=== PATIENT | male | born 1960 | race Caucasian/White ===

== ENCOUNTER 2017-03-02 23:26 | Inpatient (IN) | payer MEDICARE, MEDICAID ==
[~2017-03-02] VITALS: Ht 188 cm; Wt 122.9 kg
[~2017-03-02 23:26] MED LIST: BUDE160A3; CARI-277; NOR10T
[2017-03-03 02:59] LABS: Hematocrit 47.4 % (41.0-53.0); Hemoglobin 15.7 g/dL (13.5-17.5); Mean Corpuscular Hgb Conc. 33.1 g/dL (32.0-36.0); Mean Corpuscular Volume 90.5 fL (80.0-100.0); Mean Platelet Volume 8.8 fL (7.4-10.4); Platelet Count (auto) 334 10^3/uL (140-450); Red Cell Distribution Width 13.9 % (11.6-16.0); SUSPECT VIEW TRANSMISSION; White Blood Cell 21.2 10^3/uL (4.4-10.8)
[2017-03-03 03:00] LABS: Metamyelocytes % 0; Promyelocytes % 0; Reactive Lymphocytes 0
[2017-03-03 03:04] LABS: Albumin 4.1 g/dL (3.4-5.0); Amylase 19 U/L (25-115); Anion Gap 8 (5-15); Aspartate Aminotransferase 75 U/L (15-37); BUN/Creatinine Ratio 12.1; Blood Urea Nitrogen 30 mg/dL (7-18); Calcium 8.7 mg/dL (8.5-10.1); Carbon Dioxide 26 mmol/L (21-32); Chloride 109 mmol/L (98-107); GFR African American 35 mL/min; GFR Non-African American 29 mL/min; Glucose 148 mg/dL (74-106); Potassium 4.1 mmol/L (3.5-5.1); Sodium 143 mmol/L (136-145)
[2017-03-03 03:10] LABS: Alkaline Phosphatase 67 U/L (45-117); Bilirubin, Total 1.4 mg/dL (0.2-1.0); Total Protein 7.9 g/dL (6.4-8.2)
[2017-03-03 03:18] LABS: Hypersegmented Neutrophils Present; Myelocytes % 1; Platelet Estimate Adequate; RBC Morphology Normal
[2017-03-03] MEDS ORDERED: ONDANSETRON HCL 4 MG/2 ML VIAL ONE (04:35)
[2017-03-03] MEDS ORDERED: ONDANSETRON HCL 4 MG/2 ML VIAL IV ONE (04:45)
[2017-03-03] MEDS ORDERED: SODIUM CHLORIDE 0.9% 1,000 ML IV ONE ×2 (04:45→07:17)
[2017-03-03] MEDS ORDERED: SODIUM CHLORIDE 0.9% 250 ML IV ONE (07:25)
[2017-03-03] MEDS ORDERED: LEVOFLOXACIN 750MG 150 ML IV ONE (07:30)
[2017-03-03] MEDS ORDERED: metroNIDAZOLE 500MG/100ML 100 ML IV ONE (07:30)
[2017-03-03] MEDS ORDERED: NALBUPHINE HCL 10 MG/1ml INJECTION IV ONE (07:30)
[2017-03-03] MEDS ORDERED: BACLOFEN 10 MG TAB PO PRN (09:30)
[2017-03-03] MEDS ORDERED: DEXTROSE (50%) 50ML SYRG IV PRN (09:30)
[2017-03-03] MEDS ORDERED: MECLIZINE HCL 25 MG TAB PO PRN (09:30)
[2017-03-03] MEDS ORDERED: METHOCARBAMOL 500 MG TAB PO PRN (09:30)
[2017-03-03 09:45] LABS: Urine Bilirubin Negative (Negative); Urine Color Yellow (Yellow); Urine Glucose Normal (Normal); Urine RBC 1 /hpf (0 - 3); Urine Sperm PRESENT /hpf (None Seen); Urine Urobilinogen Normal (Negative)
[2017-03-03] MEDS ORDERED: DOCUSATE SOD 100 MG CAP PO PRN (09:45)
[2017-03-03] MEDS ORDERED: NITROGLYCERIN 0.4 MG SL TAB SL PRN (09:45)
[2017-03-03] MEDS ORDERED: ACETAMINOPHEN 325 MG TAB PO PRN (09:45)
[2017-03-03] MEDS ORDERED: MORPHINE SULF INJ 2 MG/ML SYRINGE 1ML IV PRN (09:45)
[2017-03-03] MEDS ORDERED: TEMAZEPAM 15 MG CAP PO PRN (09:45)
[2017-03-03 09:46] LABS: Urine Blood 1+ /uL (Negative); Urine Ketone 1+ (Negative); Urine Nitrite POSITIVE (Negative)
[2017-03-03 09:49] VITALS: BP 149/108
[2017-03-03] MEDS: BUDESONIDE (INHALATION) 0.5 MG/2 ML NEB NEB SCH ×2 (10:23→19:08)
[2017-03-03] MEDS ORDERED: VENL75TA PO (10:29)
[2017-03-03] MEDS ORDERED: BENZ100C97 PO (10:29)
[2017-03-03] MEDS ORDERED: FENO145T20 PO (10:29)
[2017-03-03] MEDS ORDERED: MECL1TAB42 PO (10:29)
[2017-03-03] MEDS ORDERED: METH750T3 PO (10:29)
[2017-03-03] MEDS ORDERED: GABA-521 PO (10:29)
[2017-03-03] MEDS ORDERED: BACL20TA PO (10:29)
[2017-03-03] MEDS ORDERED: PANT40T PO (10:29)
[2017-03-03] MEDS: VENLAFAXINE HCL 37.5MG TABLET PO SCH ×2 (10:48→21:53)
[2017-03-03] MEDS: FAMOTIDINE 20 MG TAB PO SCH ×2 (10:48→21:34)
[2017-03-03] MEDS: PANTOPRAZOLE 40 MG TAB PO SCH (10:48)
[2017-03-03] MEDS: MULTIPLE VITAMIN TAB PO SCH (10:48)
[2017-03-03] MEDS: MORPHINE SULF INJ 2 MG/ML SYRINGE 1ML IV PRN ×3 (10:49→20:26)
[2017-03-03] MEDS: ONDANSETRON HCL 4 MG/2 ML VIAL IV PRN ×2 (10:49→16:20)
[2017-03-03] MEDS: HYDROcodone-ACET 5/325MG TAB PO PRN ×3 (11:32→23:14)
[2017-03-03] MEDS: InsuLIN REG 1unit/0.01ml Soln (100units/ml) SC SCH ×3 (11:57→21:34)
[2017-03-03] MEDS: ACCU-CHEK COMFORT CURVE STRIP VI SCH ×3 (11:57→21:34)
[2017-03-03] MEDS: ALBUTEROL SULF 2.5 MG/0.5ML(0.5%) NEB SOLN NEB SCH ×2 (12:00→19:08)
[2017-03-03] MEDS: SODIUM CHLORIDE 0.9% 1,000 ML IV SCH ×2 (12:00→17:30)
[2017-03-03] MEDS ORDERED: TRAZ50TA2 PO (12:08)
[2017-03-03] MEDS ORDERED: PERCOT PO (12:08)
[2017-03-03] MEDS ORDERED: TAM04C PO (12:08)
[2017-03-03 13:31] LABS: Lactic Acid w/Reflex 2.9 mmol/L (0.4-2.0)
[2017-03-03 13:34] LABS: REFLEX LACTIC ACID YES OR NO NO
[2017-03-03] MEDS: GABAPENTIN 300 MG CAP PO SCH ×2 (13:37→21:34)
[2017-03-03 13:58] LABS: INR 1.16 (0.9-1.15); Prothrombin Time 12.5 sec (9.37-12.3)
[2017-03-03] MEDS: metroNIDAZOLE 500MG/100ML 100 ML IV SCH (16:19)
[2017-03-03 17:38] VITALS: BP 144/78
[2017-03-03] MEDS: traZODone HCL 50 MG TAB PO SCH (21:52)
[2017-03-03 22:11] VITALS: BP 125/76
[2017-03-04] MEDS: metroNIDAZOLE 500MG/100ML 100 ML IV SCH ×3 (00:28→16:57)
[2017-03-04] MEDS: MORPHINE SULF INJ 2 MG/ML SYRINGE 1ML IV PRN ×6 (00:54→21:29)
[2017-03-04] MEDS: SODIUM CHLORIDE 0.9% 1,000 ML IV SCH ×3 (02:15→18:14)
[2017-03-04] MEDS: InsuLIN REG 1unit/0.01ml Soln (100units/ml) SC SCH ×4 (04:34→21:30)
[2017-03-04] MEDS: ACCU-CHEK COMFORT CURVE STRIP VI SCH ×4 (04:38→21:30)
[2017-03-04 05:00] VITALS: BP 133/73
[2017-03-04] MEDS: GABAPENTIN 300 MG CAP PO SCH ×3 (05:12→21:29)
[2017-03-04] MEDS: ALBUTEROL SULF 2.5 MG/0.5ML(0.5%) NEB SOLN NEB SCH ×3 (06:00→19:53)
[2017-03-04 06:41] LABS: Basophils # (auto) 0 uL; Basophils % (auto) 0.2 % (0.0-2.0); Eosinophils # (auto) 0 uL; Eosinophils % (auto) 0.2 % (0.0-7.0); Hematocrit 39.2 % (41.0-53.0); Hemoglobin 12.9 g/dL (13.5-17.5); Lymphocytes # (auto) 1.5 uL; Lymphocytes % (auto) 11.1 % (10.0-50.0); Mean Corpuscular Hgb Conc. 32.8 g/dL (32.0-36.0); Mean Corpuscular Volume 91.3 fL (80.0-100.0); Mean Platelet Volume 8.8 fL (7.4-10.4); Monocytes # (auto) 1.1 uL; Monocytes % (auto) 7.8 % (0.0-12.0); Neutrophils % (auto) 80.7 % (37.0-80.0); Platelet Count (auto) 206 10^3/uL (140-450); Red Cell Distribution Width 14.2 % (11.6-16.0); White Blood Cell 13.7 10^3/uL (4.4-10.8)
[2017-03-04 06:58] LABS: Potassium 3.7 mmol/L (3.5-5.1)
[2017-03-04 07:00] LABS: Albumin 2.8 g/dL (3.4-5.0); BUN/Creatinine Ratio 13.1; Calcium 8.1 mg/dL (8.5-10.1)
[2017-03-04 07:04] LABS: Bilirubin, Total 0.9 mg/dL (0.2-1.0)
[2017-03-04] MEDS: BUDESONIDE (INHALATION) 0.5 MG/2 ML NEB NEB SCH ×2 (07:31→19:53)
[2017-03-04] MEDS: HYDROcodone-ACET 5/325MG TAB PO PRN ×2 (08:04→12:07)
[2017-03-04 09:00] VITALS: BP 121/72
[2017-03-04] MEDS: PANTOPRAZOLE 40 MG TAB PO SCH (09:56)
[2017-03-04] MEDS: MULTIPLE VITAMIN TAB PO SCH (09:56)
[2017-03-04] MEDS: VENLAFAXINE HCL 37.5MG TABLET PO SCH ×2 (09:56→21:29)
[2017-03-04] MEDS: LEVOFLOXACIN 250MG 50 ML IV SCH (09:57)
[2017-03-04 13:00] VITALS: BP 125/70
[2017-03-04] MEDS ORDERED: GOLYTELY 4L KIT PO ONE (15:00)
[2017-03-04 18:36] VITALS: BP 152/88
[2017-03-04] MEDS: traZODone HCL 50 MG TAB PO SCH (21:29)
[2017-03-05] MEDS: metroNIDAZOLE 500MG/100ML 100 ML IV SCH ×3 (00:01→16:26)
[2017-03-05] MEDS: ALBUTEROL SULF 2.5 MG/0.5ML(0.5%) NEB SOLN NEB SCH ×3 (00:25→18:00)
[2017-03-05] MEDS: MORPHINE SULF INJ 2 MG/ML SYRINGE 1ML IV PRN ×3 (01:19→08:22)
[2017-03-05] MEDS: SODIUM CHLORIDE 0.9% 1,000 ML IV SCH ×2 (01:20→11:35)
[2017-03-05] MEDS: GABAPENTIN 300 MG CAP PO SCH ×2 (05:22→14:20)
[2017-03-05 05:30] VITALS: BP 130/80
[2017-03-05] MEDS: InsuLIN REG 1unit/0.01ml Soln (100units/ml) SC SCH ×3 (05:51→17:00)
[2017-03-05] MEDS: ACCU-CHEK COMFORT CURVE STRIP VI SCH ×3 (05:51→17:45)
[2017-03-05 06:05] LABS: Basophils # (auto) 0.1 uL; Basophils % (auto) 0.5 % (0.0-2.0); Eosinophils # (auto) 0.2 uL; Eosinophils % (auto) 1.2 % (0.0-7.0); Hematocrit 36.8 % (41.0-53.0); Hemoglobin 12.3 g/dL (13.5-17.5); Lymphocytes # (auto) 2.4 uL; Lymphocytes % (auto) 17.8 % (10.0-50.0); Mean Corpuscular Hemoglobin 29.9 pg (28.0-32.0); Mean Corpuscular Hgb Conc. 33.4 g/dL (32.0-36.0); Mean Corpuscular Volume 89.8 fL (80.0-100.0); Mean Platelet Volume 9.4 fL (7.4-10.4); Monocytes # (auto) 1.3 uL; Monocytes % (auto) 9.8 % (0.0-12.0); Neutrophils # (auto) 9.6 uL; Neutrophils % (auto) 70.7 % (37.0-80.0); Platelet Count (auto) 217 10^3/uL (140-450); Red Cell Distribution Width 14.1 % (11.6-16.0); White Blood Cell 13.6 10^3/uL (4.4-10.8)
[2017-03-05] MEDS ORDERED: POTASSIUM CHL 20 Meq TABLET PO ONE ×2 (06:15→14:30)
[2017-03-05 06:16] LABS: INR 1.08 (0.9-1.15); Partial Thromboplastin Time 34.9 sec (22.64-33.71); Prothrombin Time 11.7 sec (9.37-12.3)
[2017-03-05 06:23] LABS: Potassium 3.4 mmol/L (3.5-5.1)
[2017-03-05 06:35] LABS: Albumin 2.7 g/dL (3.4-5.0); BUN/Creatinine Ratio 9.2; Bilirubin, Total 0.6 mg/dL (0.2-1.0); Calcium 7.9 mg/dL (8.5-10.1); Total Protein 6.2 g/dL (6.4-8.2)
[2017-03-05] MEDS: BUDESONIDE (INHALATION) 0.5 MG/2 ML NEB NEB SCH ×2 (07:27→22:00)
[2017-03-05] MEDS ORDERED: SODIUM CHLORIDE LOCK 10 ML ONE (08:20)
[2017-03-05] MEDS ORDERED: diphenhdrAMINE HCL 50 MG/1 ML VL ONE (08:21)
[2017-03-05 09:00] VITALS: BP 113/75
[2017-03-05] MEDS ORDERED: METOPROLOL TARTRATE 25 MG TAB PO SCH (10:00)
[2017-03-05] MEDS: PANTOPRAZOLE 40 MG TAB PO SCH (10:00)
[2017-03-05] MEDS: VENLAFAXINE HCL 37.5MG TABLET PO SCH (10:00)
[2017-03-05] MEDS: MULTIPLE VITAMIN TAB PO SCH (10:00)
[2017-03-05] MEDS: LEVOFLOXACIN 250MG 50 ML IV SCH (10:25)
[2017-03-05] MEDS: fentaNYL CITRATE 100 MCG/2 ML VL ONE ×2 (12:05→12:08)
[2017-03-05] MEDS: MIDAZOLAM HCL 5 MG/ML-1ML VIAL ONE ×3 (12:05→12:14)
[2017-03-05] MEDS ORDERED: MORPHINE SULF INJ 2 MG/ML SYRINGE 1ML IV PRN (14:45)
[2017-03-05] MEDS ORDERED: cefTRIAXone 1GM/50ML D5W 50 ML IV SCH ×2 (16:00)
[2017-03-05 17:00] VITALS: BP 131/72
== END 2017-03-05 20:07 | disposition left against medical advice (07) | DRG 871 ==
LOC: EDBD 23:26 → ER 23:26 → TELE 23:27 → TELE-E-ADS 03-03 11:24 → TELE-WESTW 03-03 16:22
PROVIDERS: ADMIT Internal Medicine; ATTEND Internal Medicine
PROC: 0DBE8ZX Excision of Large Intestine, Via Natural or Artificial Opening Endoscopic, Diagnostic (ICD-10-PCS; principal; 2017-03-05 12:02)
DX: A41.9 Sepsis, unspecified organism (principal); N17.0 Acute kidney failure with tubular necrosis; N18.4 Chronic kidney disease, stage 4 (severe); N39.0 Urinary tract infection, site not specified; K52.9 Noninfective gastroenteritis and colitis, unspecified; J44.9 Chronic obstructive pulmonary disease, unspecified; M10.9 Gout, unspecified; J45.909 Unspecified asthma, uncomplicated; K57.30 Diverticulosis of large intestine without perforation or abscess without bleeding; I12.9 Hypertensive chronic kidney disease with stage 1 through stage 4 chronic kidney disease, or unspecified chronic kidney disease; E86.0 Dehydration; E11.65 Type 2 diabetes mellitus with hyperglycemia; E87.6 Hypokalemia; B96.20 Unspecified Escherichia coli [E. coli] as the cause of diseases classified elsewhere; K64.8 Other hemorrhoids; K76.0 Fatty (change of) liver, not elsewhere classified; Z82.3 Family history of stroke
CPT/HCPCS: 36415; 71010; 74176; 80053; 81001; 82150; 82962; 83036; 83605; 83690; 83735; 84484; 85007; 85025; 85027; 85610; 85730; 87040; 87045; 87086; 87088; 87186; 87493; 87899; 93005; 94640; 96361; 96365; 96367; 96375; J0696; J1815; J1956; J2250; J2405; J3490